=== PATIENT | female | born 1955 | race Caucasian/White ===

== ENCOUNTER → 2022-04-10 | Outpatient (REF) | payer MEDICARE, BC | LOC: M LAB REF 16:22 | PROVIDERS: ATTEND Physician Assistant | DX: R05.9 Cough, unspecified (principal) ==

== ENCOUNTER → 2022-10-08 | Outpatient (REF) | payer MEDICARE, BC | LOC: M LAB REF 21:10 | PROVIDERS: ATTEND Physician Assistant Medical | DX: R52 Pain, unspecified (principal) ==

== ENCOUNTER → 2022-10-08 | Outpatient (REF) | payer MEDICARE, BC | LOC: M LAB REF 16:04 | PROVIDERS: ATTEND Physician Assistant Medical | DX: M79.10 Myalgia, unspecified site (principal) ==

== ENCOUNTER → 2022-11-18 | Outpatient (CLI) | payer MEDICARE, BC | LOC: M WUC 15:19 | PROVIDERS: ATTEND Physician Assistant | DX: S80.12XA Contusion of left lower leg, initial encounter (principal); M79.10 Myalgia, unspecified site; Z20.828 Contact with and (suspected) exposure to other viral communicable diseases; X58.XXXA Exposure to other specified factors, initial encounter; Y92.9 Unspecified place or not applicable; Y93.9 Activity, unspecified; Y99.9 Unspecified external cause status ==

== ENCOUNTER → 2023-05-22 | Outpatient (CLI) | payer BC, MEDICARE | LOC: M WHC 14:00 | PROVIDERS: ATTEND Advanced Practice Midwife | DX: Z12.31 Encounter for screening mammogram for malignant neoplasm of breast (principal); R92.323 Mammographic fibroglandular density, bilateral breasts ==

== ENCOUNTER → 2023-07-27 | Outpatient (CLI) | payer MEDICARE | LOC: M WUC 14:45 | PROVIDERS: ATTEND Physician Assistant Medical | DX: R53.83 Other fatigue (principal); R53.81 Other malaise ==

== ENCOUNTER → 2024-02-01 | Outpatient (REF) | payer MEDICARE | LOC: M LAB REF 12:08 | PROVIDERS: ATTEND Physician Assistant | DX: B34.9 Viral infection, unspecified (principal) ==